=== PATIENT | male | born 1990 | race Caucasian/White ===

== ENCOUNTER 2017-10-18 16:16 | Emergency (ER) | payer OTHER ==
--- NOTE | 2017-10-18 17:03 | ED ---
HPI Diabetic - HPI Summary HPI Summary: This patient is a 27 year old M presenting to [facility] with a chief complaint of hyperglycemia since 1340. Pt endorses taking levamin 15 units and novalog 8 units based on sliding scale at 1250. Per EMS glucose [employer], was diaphoretic, anxious. Endorses muscle cramping, decreased ROM. Fluids improve sx. Pt thought he was hypoglycemic so took 5-6 glucose pills. Blood glucose level 211 now. - History Of Current Complaint Chief Complaint: EDDiabeticProb Time Seen by Provider: 10/18/17 16:33 Hx Obtained From: Patient, EMS Onset/Duration: Sudden Onset, Lasting Hours Timing: Constant Severity Initially: Moderate Severity Currently: Mild Character: Alert Aggravating: Medication Change - 5-6 glucose tabs Alleviating: EMS Treatment - nl saline Associated Signs & Symptoms: Diaphoresis Related History: Compliant - Allergies/Home Medications Allergies/Adverse Reactions: Allergies Allergy/AdvReac Type Severity Reaction Status Date / Time Penicillins Allergy Unknown Verified 10/18/17 16:40 Reaction Details PMH/Surg Hx/FS Hx/Imm Hx Endocrine/Hematology History: Reports: Hx Diabetes Sensory History: Reports: Hx Contacts or Glasses Opthamlomology History: Reports: Hx Contacts or Glasses EENT History: Denies: Hx Deafness Neurological History: Denies: Hx CVA Psychiatric History: Reports: Hx Anxiety Infectious Disease History: No Infectious Disease History: Denies: Traveled Outside the [place] in Last 30 Days - Family History Known Family History: Negative: Blood Disorder - Social History Occupation: Student Alcohol Use: None Substance Use Type: Reports: None Hx Tobacco Use: No Smoking Status (MU): Never Smoked Tobacco Review of Systems Positive: Skin Diaphoresis. Negative: Fever Positive: Myalgia - cramping, Decreased ROM - from cramps Positive: Anxious All Other Systems Reviewed And Are Negative: Yes Physical Exam - Summary Physical Exam Summary: Appearance: The patient is well-nourished in no acute distress and in no acute pain. Skin: The skin is warm and dry and skin color reflects adequate perfusion. HEENT: The head is normocephalic and atraumatic. The pupils are equal and reactive. The conjunctivae are clear and without drainage. Nares are patent and without drainage. Mouth reveals moist mucous membranes and the throat is without erythema and exudate. The external ears are intact. The ear canals are patent and without drainage. The tympanic membranes are intact. Neck: The neck is supple with full range of motion and non-tender. There are no carotid bruits. There is no neck vein distension. Respiratory: Chest is non-tender. Lungs are clear to auscultation and breath sounds are symmetrical and equal. Cardiovascular: Heart is regular rate and rhythm. There is no murmur or rub auscultated. There is no peripheral edema and pulses are symmetrical and equal. Abdomen: The abdomen is soft and non-tender. There are normal bowel sounds heard in all four quadrants and there is no organomegaly palpated. Musculoskeletal: There is no back tenderness noted. Extremities are non-tender with full range of motion. There is good capillary refill. There is no peripheral edema or calf tenderness elicited. Neurological: Patient is alert and oriented to person, place and time. The patient has symmetrical motor strength in all four extremities. Cranial nerves are grossly intact. Deep tendon reflexes are symmetrical and equal in all four extremities. Psychiatric: The patient has an appropriate affect and does not exhibit any anxiety or depression. Triage Information Reviewed: Yes Vital Signs On Initial Exam: Initial Vitals Temp Pulse Resp BP Pulse Ox 99 F 92 16 154/92 97 10/18/17 16:37 10/18/17 16:37 10/18/17 16:37 10/18/17 16:37 10/18/17 16:37 Vital Signs Reviewed: Yes Diagnostics - Vital Signs Vital Signs Temp Pulse Resp BP Pulse Ox 10/18/17 16:39 89 97 10/18/17 16:38 91 154/92 96 10/18/17 16:37 99 F 92 16 154/92 97 - Laboratory Result Diagrams: 10/18/17 17:10 10/18/17 17:10 Lab Statement: Any lab studies that have been ordered have been reviewed, and results considered in the medical decision making process. Re-Evaluation - Re-Evaluation First Eval Re-Evaluation Time: 17:45 Change: Improved Comment: Pt feels fine, discussed discharge. Diabetic Course/Dx - Course Course Of Treatment: Mr. Mock presented from [place]. He felt like he was cramping up while walking to class today. When he feels that weights because his blood sugars low so he took sugar pills and some white bread. His blood sugar very high and at [place] they felt that they could not control it and they sent him over here. By the time he arrived here was blood sugar was under control and he was asymptomatic he had received several liters of fluid at [place]. Labs were checked and he was observed and maintained his blood sugar. His BUNs was still elevated indicating he may have been quite dehydrated prior to receiving the fluid. - Diagnoses Provider Diagnoses: Dehydration, Hyperglycemia Discharge - Sign-Out/Discharge Documenting (check all that apply): Patient Departure - Discharge Plan Condition: Stable Disposition: HOME Patient Education Materials: Dehydration (ED), Diabetic Hyperglycemia (ED) Additional Instructions: RETURN TO EMERGENCY DEPARTMENT FOR ANY NEW OR WORSENING SYMPTOMS. - Billing Disposition and Condition Condition: STABLE Disposition: Home
[2017-10-18 17:19] LABS: ABS Basophils 0.1 10^3/ul (0-0.2); ABS Eosinophils 0.3 10^3/ul (0-0.6); ABS Lymphocytes 1.7 10^3/ul (1.0-4.8); ABS Monocytes 0.4 10^3/ul (0-0.8); ABS Neutrophils 2.8 10^3/ul (1.5-7.7); ABS Nucleated RBC 0 10^3/ul; Eosinophil % 5.1 % (0-6); Hematocrit 45 % (42-52); Hemoglobin 15.6 g/dl (14.0-18.0); Lymphocyte % 32.5 % (25-47); Mean Corpuscular HGB Conc 35 g/dl (31-36); Mean Corpuscular Hemoglobin 31 pg (27-31); Mean Corpuscular Volume 87 fL (80-94); Mean Platelet Volume 8.9 um3 (7.4-10.4); Nucleated Red Blood Cells % 0; Platelet Count 191 10^3/ul (150-450); Red Blood Count 5.13 10^6/ul (4.00-5.40); Red Cell Distribution Width 12 % (10.5-15); White Blood Count 5.2 10^3/ul (3.5-10.8)
[2017-10-18 17:39] LABS: EGFR Non-African American 109.6 (>60)
[2017-10-18 17:41] LABS: Urine Appearance Clear; Urine Blood Negative (Negative); Urine Color Straw; Urine Ketones Negative (Negative); Urine Protein Negative (Negative); Urine Specific Gravity 1.021 (1.010-1.030); Urine Urobilinogen Negative (Negative)
[2017-10-18 18:15] VITALS: BP 153/87
== END 2017-10-18 18:08 | disposition home or self-care (01) ==
LOC: ED 16:16
DX: R73.9 Hyperglycemia, unspecified (principal); E86.0 Dehydration; Z88.0 Allergy status to penicillin
CPT/HCPCS: 36415; 80053; 81003; 82803; 83605; 85025; 86140; 99282